=== PATIENT | female | born 1960 | race Caucasian/White ===

== ENCOUNTER 2020-01-11 09:09 | Emergency (ER) | payer BC ==
--- NOTE | 2020-01-11 09:18 | ED ---
Back Pain - HPI Summary HPI Summary: Pt. is a 59 y.o female who presents to the ER for right lower back pain x several days. Pt. notes pain radiates into right groin in upper leg. Denies numbness, tingling or weakness. Denies bowel or bladder incontinence or retention. Pt. also notes vague complaints of chills, diaphoresis and muscle aches. Past hx of HLD. Pt. notes she took hydrocodone without improvement. Otherwise denies falls and injury. Denies V/D, abd. pain, cp, sob. Sxs are moderate in severity. Movement makes sxs worse. Nothing improves sxs. - History of Current Complaint Chief Complaint: EDBackInjuryPain Stated Complaint: BACK,LEG AND RIGHT SIDE PAIN PER PT Time Seen by Provider: 01/11/20 09:16 Hx Obtained From: Patient Pain Intensity: 8 - Allergies/Home Medications Allergies/Adverse Reactions: Allergies Allergy/AdvReac Type Severity Reaction Status Date / Time hydromorphone Allergy Itching Verified 01/11/20 09:12 Home Medications: Home Medications Aspirin EC TAB* [Ecotrin EC TAB*] 650 mg PO DAILY 01/11/20 [History Confirmed ] Atorvastatin* [Lipitor*] 40 mg PO DAILY 01/11/20 [History Confirmed 01/11/20] Escitalopram * [Lexapro *] 20 mg PO DAILY 01/11/20 [History Confirmed 01/11/20] methylPREDNISolone [Medrol Dosepak 4 MG*] 0 mg PO .SEE VASILE INSTRUCTION #1 tab [Rx] PMH/Surg Hx/FS Hx/Imm Hx Previously Healthy: Yes Infectious Disease History: No Infectious Disease History: Denies: Traveled Outside the [place] in Last 30 Days Review of Systems - ROS Summary Review of Systems Summary: Aspirin EC TAB* [Ecotrin EC TAB*] 650 mg PO DAILY 01/11/20 [History Confirmed ] Atorvastatin* [Lipitor*] 40 mg PO DAILY 01/11/20 [History Confirmed 01/11/20] Escitalopram * [Lexapro *] 20 mg PO DAILY 01/11/20 [History Confirmed 01/11/20] methylPREDNISolone [Medrol Dosepak 4 MG*] 0 mg PO .SEE VASILE INSTRUCTION #1 tab [Rx] Positive: Chills, Fatigue ENT: Negative Cardiovascular: Negative Negative: Chest Pain Respiratory: Negative Negative: Shortness Of Breath, Cough Gastrointestinal: Negative Genitourinary: Negative Negative: dysuria, flank pain Positive: Other - Pain to low/right side back into right leg. Skin: Negative Positive: Headache. Negative: Weakness, Paresthesia, Numbness All Other Systems Reviewed And Are Negative: Yes Physical Exam Triage Information Reviewed: Yes Vital Signs On Initial Exam: Initial Vitals Temp Pulse Resp BP Pulse Ox 96.7 F 80 18 171/84 97 01/11/20 09:10 01/11/20 09:10 01/11/20 09:10 01/11/20 09:10 01/11/20 09:10 Vital Signs Reviewed: Yes Appearance: Positive: Well-Appearing - Pt. sitting on bed in NAD. Skin: Positive: Warm, Dry Head/Face: Positive: Normal Head/Face Inspection Eyes: Positive: Normal, EOMI, EDUAR Neck: Positive: Supple Respiratory/Lung Sounds: Positive: Clear to Auscultation, Breath Sounds Present. Negative: Rales, Rhonchi, Wheezes Cardiovascular: Positive: Normal, RRR Abdomen Description: Positive: Other: - Abd. soft, obese. Mild diffuse tenderness without rebound or guarding. mild right CVA tenderness. Musculoskeletal: Positive: Other - 5/5 strength in bilateral lower extremities with flexion and dorsiflexion. Normal sensation. Good +2 pedal pulse. No calf edema or pain. Positive straight leg on the right. Midline low lumbar and right SI on palpation. Neurological: Positive: Normal, CN Intact II-III Psychiatric: Positive: Affect/Mood Appropriate Procedures - Sedation Patient Received Moderate/Deep Sedation with Procedure: No Diagnostics - Vital Signs Vital Signs Temp Pulse Resp BP Pulse Ox 01/11/20 09:10 96.7 F 80 18 171/84 97 - Laboratory Result Diagrams: 01/11/20 09:38 01/11/20 09:38 Lab Statement: Any lab studies that have been ordered have been reviewed, and results considered in the medical decision making process. Back Pain Course/Dx - Course Course Of Treatment: Pt. with low radicular back pain. Afrebrile. NO evidence of cuada equina. Pt. also notes have chills, myalgias and feeling unwell the last few days. Basic labs obtained. Pt. given percocet and toradol for pain. ECG done at 1102 shows a sinus rhythm of 66bpm, normal axis, no STEMI. Labs show mild increased in CRP, otherwise unremarkable. U/A has microscopic RBCs, neg for infection. Pt. notes she always has blood in urine. No hx of kidney stones. On ree-xam pt. feeling better. Ambulating without difficulty. WIll dc home with a course of pred. Can take home pain meds as directed. To apply heat and avoid heavy lifintg. To f.u with pcp in 2-3 days and return to er if sxs change or worsen. - Diagnoses Differential Diagnosis/HQI/PQRI: Positive: Arthritis, Herniated Disc, Renal Colic, Strain, Sprain Provider Diagnoses: Low back pain Discharge ED - Sign-Out/Discharge Documenting (check all that apply): Patient Departure - Discharge Plan Condition: Improved Disposition: HOME Prescriptions: methylPREDNISolone [Medrol Dosepak 4 MG*] 0 mg PO .SEE VASILE INSTRUCTION #1 tab Patient Education Materials: Low Back Strain (ED) Referrals: Santos Loaiza MD [Primary Care Provider] - Additional Instructions: Schedule a follow up appointment with PCP within one week Can continue home pain medications as directed Steroid pack as directed Apply warm compresses Gentle stretching Return to ER if symptoms change or worsen - Billing Disposition and Condition Condition: IMPROVED Disposition: Home - Attestation Statements Provider Attestation: I was available for consult. This patient was seen by the CARO. The patient was not presented to, seen by, or examined by me. -Minh
[2020-01-11] MEDS ORDERED: oxyCODONE/Acetamin 5/325 MG* TAB PO ONE (09:37)
[2020-01-11] MEDS ORDERED: Ketorolac *IM* INJ* 60 MG/2 ML VIAL IM ONE (09:37)
[2020-01-11 09:52] LABS: ABS Basophils 0.1 10^3/ul (0-0.2); ABS Eosinophils 0.1 10^3/ul (0-0.6); ABS Monocytes 0.8 10^3/ul (0-0.8); ABS Neutrophils 5.3 10^3/ul (1.5-7.7); Hematocrit 41 % (35-47); Hemoglobin 14.4 g/dL (12.0-16.0); Lymphocyte % 24.2 %; Mean Corpuscular HGB Conc 35 g/dL (31-36); Mean Corpuscular Hemoglobin 31 pg (27-31); Mean Corpuscular Volume 88 fL (80-97); Mean Platelet Volume 8.4 fL (7.4-10.4); Nucleated Red Blood Cells % 0.1; Platelet Count 292 10^3/uL (150-450); Red Blood Count 4.71 10^6 /uL (3.70-4.87); Red Cell Distribution Width 13 % (10-15); White Blood Count 8.3 10^3/uL (3.5-10.8)
--- OUTSIDE RECORDS SUMMARY | 2020-01-11 10:01 | XMS REPORT | Continuity of Care Document ---
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 Medicine Problems Description No Information Available Social History Type Date Description Comments Sex Unknown ETOH Use Denies alcohol use Tobacco Use Start: Unknown Heavy tobacco smoker (more than 10 cigarettes/day) Smoking Status Reviewed: 10/06/19 Heavy tobacco smoker (more than 10 cigarettes/day) Allergies, Adverse Reactions, Alerts Active Allergies Reaction Severity Comments Date Dilaudid 10/06/2019 Medications Active Medications SIG Qnty Indications Ordering Provider Date Amoxicillin/Clavulanat 1 by mouth twice 14tabs J01.00 Santos Lao 12/09/2019 e Potassium a day MD Josse 875-125mg Tablets Hydrocodone-Acetaminop Take 1 Tablet By 28Each Santos Lao 11/18/2019 hen Mouth 4 Times MD Josse 5-325mg Tablets Daily as Needed For Pain . DO Not Exceed 4 Per 24 Hours Atorvastatin Calcium 1 by mouth every 90tabs Santos Lao 10/06/2019 40mg day MD Josse Tablets Aspirin Adult 1 by mouth every Unknown 325mg day Tablets Escitalopram Oxalate 1 by mouth every Unknown 20mg day Tablets Immunizations CPT Code Status Date Vaccine Lot # [id number] Given 10/06/2019 Influenza Virus Vaccine, Recombinant Dna, [id number] Hemagglutnin Protein On Vital Signs Date Vital Result Comment 12/09/2019 8:40am BP Systolic 138 mmHg BP Diastolic 88 mmHg Heart Rate 68 /min Body Temperature 97.1 F Respiratory Rate 16 /min O2 % BldC Oximetry 96 % Ra Height 64 inches 5'4" Weight 185.00 lb BMI (Body Mass Index) 31.8 kg/m2 10/06/2019 6:58pm BP Systolic 124 mmHg BP Diastolic 86 mmHg Heart Rate 70 /min Body Temperature 98.1 F Respiratory Rate 17 /min Height 64 inches 5'4" Weight 184.00 lb BMI (Body Mass Index) 31.6 kg/m2 Results Description No Information Available Procedures Date Code Description Status 11/24/2016 [id number] Mammogram Completed Medical Devices Description No Information Available Encounters Type Date Location Provider Dx Diagnosis Office Visit 10/06/2019 Main Office Santos Lao I73.9 Peripheral vascular 7:00p MD Josse disease, unspecified M51.16 Intervertebral disc disorders w radiculopathy, lumbar region M50.30 Other cervical disc degeneration, unsp cervical region Z23 Encounter for immunization Assessments Date Code Description Provider 12/09/2019 J01.00 Acute maxillary sinusitis, unspecified Santos Loaiza MD 12/09/2019 F17.210 Nicotine dependence, cigarettes, Santos Loaiza MD uncomplicated 10/06/2019 I73.9 Peripheral vascular disease, unspecified Santos Loaiza MD 10/06/2019 M51.16 Intervertebral disc disorders with Santos Loaiza MD radiculopathy, lumbar region 10/06/2019 M50.30 Other cervical disc degeneration, Santos Loaiza MD unspecified cervical region 10/06/2019 Z23 Encounter for immunization Santos Loaiza MD Plan of Treatment 12/09/2019 - Santos Loaiza MDJ01.00 Acute maxillary sinusitis, unspecifiedNew Medication:Amoxicillin/Clavulanate Potassium 875-125 mg - 1 by mouth twice a dayF17.210 Nicotine dependence, cigarettes, uncomplicatedAllComments:Medication Management Patient Understands medications she's taking? Yes No Are there Barriers to Adherence? Yes No Has the patient been asked about herbal supplements and therapies, and OTC meds? Yes No Functional Status Description No Information Available Mental Status Description No Information Available Referrals Refer to Reason for Referral Status Appt Date [facility] Evaluate and treat neck with L c6 Scheduled 00/ radicular numbness and chronic intermittent LBP s/p discectomy and revision. [facility] [id number] [place] [address] [phone]
[2020-01-11 10:02] LABS: Albumin 3.9 g/dL (3.2-5.2); Calcium 9.5 mg/dL (8.6-10.3); Potassium 3.8 mmol/L (3.5-5.0); Total Bilirubin 0.3 mg/dL (0.2-1.0)
[2020-01-11 10:08] LABS: Albumin/Globulin Ratio 1.1 (1-3); BUN/Creatinine Ratio 19.7 (8-20); C Reactive Protein 35.52 mg/L (<8.01); EGFR African American 102.3 (>60); EGFR Non-African American 84.6 (>60); Globulin 3.6 g/dL (2-4); Total Protein 7.5 g/dL (6.4-8.9)
[2020-01-11 10:52] LABS: Urine Appearance Clear; Urine Bilirubin Negative (Negative); Urine Blood 2+ (Negative); Urine Color Yellow; Urine Glucose Negative (Negative); Urine Ketones Negative (Negative); Urine Nitrite Negative (Negative); Urine Protein 2+(100 mg/dL) (Negative); Urine Specific Gravity 1.008 (1.010-1.030); Urine Urobilinogen Negative (Negative)
[2020-01-11 11:06] LABS: Urine Bacteria Absent (Absent); Urine Red Blood Cell Trace(0-2/hpf) (Absent); Urine Squamous Epithelial Cell Present (Absent); Urine White Blood Cell Trace(0-5/hpf) (Absent)
[2020-01-11 12:23] VITALS: BP 104/74
== END 2020-01-11 12:22 | disposition home or self-care (01) ==
LOC: ED 09:09
DX: M54.5 Low back pain (principal); Z79.82 Long term (current) use of aspirin; Z79.899 Other long term (current) drug therapy; Z88.5 Allergy status to narcotic agent
CPT/HCPCS: 36415; 80053; 81003; 81015; 84484; 85025; 86140; 87086; 93005; 96372; 99282; A9270-GY; J1885